=== PATIENT | male | born 1965 | race Caucasian/White ===

== ENCOUNTER 2021-10-15 08:07 | Emergency (ER) | payer OTHER, BC ==
[2021-10-15] MEDS ORDERED: Ibuprofen 600 MG Tab PO ONE (08:43)
[2021-10-15] MEDS ORDERED: Acetaminophen/oxyCODONE 325-5 MG Tab PO ONE (08:43)
--- NOTE | 2021-10-15 08:46 | EDM.PDOC ---
ED HPI GENERAL MEDICAL PROBLEM - General Chief Complaint: General Stated Complaint: RIB PAIN Time Seen by Provider: 10/15/21 08:08 Source of Information: Reports: Patient History Limitations: Reports: No Limitations - History of Present Illness INITIAL COMMENTS - FREE TEXT/NARRATIVE: 56-year-old male presents for left anterolateral rib pain following a fall yesterday. 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 When trying to get down he fell and hit the left anterior part of his torso on the wheel well. He did land on his feet and denies hitting his head or LOC. Denies any other injuries. Notes pain in the left anterolateral rib area worse with palpation and deep breathing. Worse with bending forward. Worse when laying flat. No associated shortness of breath. No nausea or vomiting. L side Pain Score (Numeric/FACES): 5 - Related Data Allergies Allergy/AdvReac Type Severity Reaction Status Date / Time Penicillins Allergy Hives Verified 10/15/21 08:32 Home Meds: Home Meds Cholecalciferol (Vitamin D3) [Vitamin D] 5,000 unit PO DAILY 10/15/21 [History] Doxazosin [Cardura] 2 mg PO DAILY 10/15/21 [History] Meloxicam 15 mg PO TID 10/15/21 [History] Propranolol [Inderal LA] 80 mg PO DAILY 10/15/21 [History] Past Medical History HEENT History: Reports: None Cardiovascular History: Reports: None Respiratory History: Reports: None Gastrointestinal History: Reports: None Genitourinary History: Reports: Other (See Below) Other Genitourinary History: enlarged prostate Musculoskeletal History: Reports: Arthritis, Fracture Neurological History: Reports: None Psychiatric History: Reports: None Endocrine/Metabolic History: Reports: None Hematologic History: Reports: None Immunologic History: Reports: None Oncologic (Cancer) History: Reports: None Dermatologic History: Reports: None - Infectious Disease History Infectious Disease History: Reports: Chicken Pox, Measles - Past Surgical History Head Surgeries/Procedures: Reports: None Male Surgical History: Reports: None Musculoskeletal Surgical History: Reports: Other (See Below) Other Musculoskeletal Surgeries/Procedures:: jaw sx after fx Social & Family History - Family History Family Medical History: No Pertinent Family History - Tobacco Use Tobacco Use Status *Q: Current Every Day Tobacco User Years of Tobacco use: 40 Packs/Tins Daily: 0.5 - Caffeine Use Caffeine Use: Reports: Coffee, Soda - Recreational Drug Use Recreational Drug Use: No ED ROS GENERAL - Review of Systems Review Of Systems: Comprehensive ROS is negative, except as noted in HPI. ED EXAM, GENERAL - Physical Exam Exam: See Below Exam Limited By: No Limitations General Appearance: Alert, WD/WN, No Apparent Distress Ears: Hearing Grossly Normal Throat/Mouth: Normal Voice, No Airway Compromise Head: Atraumatic, Normocephalic Neck: Normal Inspection, Supple, Non-Tender Respiratory/Chest: No Respiratory Distress, Lungs Clear, Normal Breath Sounds, No Accessory Muscle Use, Other (TTP of left anterolateral ribs without palpable deformity or ecchymosis of skin noted) Cardiovascular: Normal Peripheral Pulses, Regular Rate, Rhythm GI/Abdominal: Soft, Non-Tender Back Exam: Normal Inspection Extremities: Normal Inspection Neurological: Alert, Normal Cognition, Normal Gait Psychiatric: Normal Affect, Normal Mood Skin Exam: Warm, Dry, Intact, Normal Color Course - Vital Signs Last Recorded V/S: Last Vital Signs Temp 96.6 F L 10/15/21 08:34 Pulse 53 L 10/15/21 09:57 Resp 16 10/15/21 09:57 BP 93/61 10/15/21 09:57 Pulse Ox 98 10/15/21 09:57 - Orders/Labs/Meds Orders: Active Orders 24 hr Category Date Time Status Chest wo Cont [CT] Stat Exams 10/15/21 08:43 Taken Meds: Medications Discontinued Medications Generic Name Dose Route Start Last Admin Trade Name Amariq PRN Reason Stop Dose Admin Ibuprofen 600 mg 10/15/21 08:43 10/15/21 08:49 Ibuprofen 600 Mg Tab PO 10/15/21 08:44 600 mg ONETIME ONE Administration Oxycodone/Acetaminophen 1 tab 10/15/21 08:43 10/15/21 08:49 Acetaminophen/Oxycodone 325-5 Mg Tab PO 10/15/21 08:44 1 tab ONETIME ONE Administration - Re-Assessments/Exams Free Text/Narrative Re-Assessment/Exam: 10/15/21 08:45 We will give Motrin and Percocet for pain. Will get CT imaging of the chest to ensure no rib fractures or tiny pneumothorax. 10/15/21 10:[address] imaging shows an anterior lateral left 7th rib fracture with no pneumothorax. Will discharge with pain medication. Patient formed about the risks of pneumonia. Departure - Departure Time of Disposition: 10:06 Disposition: Home, Self-Care 01 Condition: Good Clinical Impression: Rib fracture Qualifiers: Encounter type: initial encounter Rib fracture type: single rib Fracture type: closed Laterality: left Qualified Code(s): S22.32XA - Fracture of one rib, left side, initial encounter for closed fracture - Discharge Information Instructions: Rib Fracture Referrals: Sara Godfrey DO [Primary Care Provider] - Forms: ED Department Discharge Additional Instructions: Your CT scan shows a fracture of your left 7th rib. There is no pneumothorax, which means no collapsed lung. This will likely take several weeks to completely heal. I did send you pain medication to [facility]. We can only send 3 days worth of pain medication from the emergency department, however, you would likely have pain for multiple weeks. Typically people describe rib pain for about 6 weeks after a rib fracture. You may need to follow-up with your primary care physician for more pain medicine if your pain is not adequately treated with [id number] pain medicine after you run out of your prescription medication. Please try to take deep breaths throughout the day as you are at risk of pneumonia with a rib fracture. People tend to take shallow breaths so the air does not get all the way to the bottom of the lungs and the bottom of the lungs can develop pneumonia. This is seen more in elderly patients, however, this can also happen to young people. The following information is given to patients seen in the emergency department who are being discharged to home. This information is to outline your options for follow-up care. We provide all patients seen in our emergency department with a follow-up referral. The need for follow-up, as well as the timing and circumstances, are variable depending upon the specifics of your emergency department visit. If you don't have a primary care physician on staff, we will provide you with a referral. We always advise you to contact your personal physician following an emergency department visit to inform them of the circumstance of the visit and for follow-up with them and/or the need for any referrals to a consulting specialist. The emergency department will also refer you to a specialist when appropriate. This referral assures that you have the opportunity for follow-up care with a specialist. All of these measure are taken in an effort to provide you with optimal care, which includes your follow-up. Under all circumstances we always encourage you to contact your private physician who remains a resource for coordinating your care. When calling for follow-up care, please make the office aware that this follow-up is from your recent emergency room visit. If for any reason you are refused follow-up, please contact the [facility] Emergency Department at and asked to speak to the emergency department charge nurse. Please follow up with your primary care physician. If you do not have a primary care physician, see below: [facility] [address] [place] [id number] My [facility] [address] [place] [address] [facility] [address], [place] [address] Sepsis Event Note (ED) - Evaluation Sepsis Screening Result: No Definite Risk - Focused Exam Vital Signs: Vital Signs Temp Pulse Resp BP Pulse Ox 10/15/21 09:57 53 L 16 93/61 98 10/15/21 08:34 96.6 F L 54 L 16 101/64 97 - My Orders Last 24 Hours: My Active Orders 10/15/21 08:43 Chest wo Cont [CT] Stat - Assessment/Plan Last 24 Hours: My Active Orders 10/15/21 08:43 Chest wo Cont [CT] Stat
--- NOTE | 2021-10-17 10:56 | CT ---
Final Report: Indication: Left anterior/lateral rib pain following injury. Technique: Multiple contiguous axial images were obtained from the thoracic inlet through the upper abdomen without intravenous contrast enhancement. Please note that all CT scans at this facility use dose modulation, iterative reconstruction, and/or weight-based dosing when appropriate to reduce radiation dose to as low as reasonably achievable. Comparison: None Findings: In the right upper lobe, a ground-glass opacity is identified measuring 18 mm in size. This is best seen on image number 25, series 202. In the posterior inferior aspect of the right upper lobe, a 3 mm noncalcified pulmonary nodules identified, best seen on image number 55, series 201. Another ground-glass nodule is identified in the lateral aspect of the right upper lobe, best seen on image number 60, series 2. In the right middle lobe, an 8 millimeter pulmonary nodules identified best seen on image number 68, series 202. In the posterior aspect of the right lower lobe, a 12 mm pulmonary ground-glass nodules identified best seen on image number 68, series 202. No infiltrate, pleural effusion, or pneumothorax is identified. The aorta is normal in caliber. No mediastinal or axillary lymphadenopathy is identified. The heart is normal in size. No pericardial effusion is identified. Fractures of the anterior lateral left 7th rib is identified. No pneumothorax is identified. The visualized portions of the unenhanced liver, spleen, pancreas, adrenals, and kidneys are normal. Degenerative changes of the spine are identified. No lytic or blastic lesions are identified. Impression: Anterior lateral left 7th rib fracture on the left. No pneumothorax. Pulmonary nodules identified on the right. Follow-up should be performed according to the Fleischner society criteria Please note that all CT scans at this facility use dose modulation, iterative reconstruction, and/or weight-based dosing when appropriate to reduce radiation dose to as low as reasonably achievable. Dictated by Cheryle Liao MD @ 10/15/2021 9:53:28 AM Signed by: Cheryle Liao MD @10/15/2021 9:53:28 AM (Electronic Signature) [email or web address]
== END 2021-10-15 10:22 | disposition home or self-care (01) ==
LOC: MW.ED 08:07
DX: S22.32XA Fracture of one rib, left side, initial encounter for closed fracture (principal); Z72.0 Tobacco use; Z88.0 Allergy status to penicillin; W17.89XA Other fall from one level to another, initial encounter; Y92.89 Other specified places as the place of occurrence of the external cause; Y99.0 Civilian activity done for income or pay
CPT/HCPCS: 71250; 99283; A9270

== ENCOUNTER 2024-08-02 11:14 | Emergency (ER) | payer BC, OTHER ==
[2024-08-02] MEDS: Lidocaine 2% Viscous Solution 15 ML UD PO ONE (11:45)
[2024-08-02] MEDS: Benzocaine 20% Topical Spray UD MUCMEM ONE (11:45)
== END 2024-08-02 11:59 | disposition home or self-care (01) ==
LOC: MW.ED 11:14
DX: K04.7 Periapical abscess without sinus (principal); Z75.8 Other problems related to medical facilities and other health care; Z88.0 Allergy status to penicillin; Z79.899 Other long term (current) drug therapy
CPT/HCPCS: 99282; A9270; 99283

== ENCOUNTER 2024-09-12 07:06 | Day surgery (SDC) | payer BC ==
[2024-09-12] MEDS ORDERED: propofoL 50 ML ONE (07:58)
[2024-09-12] MEDS: Lactated Ringers 1,000 ML IV SCH (08:06)
== END 2024-09-12 10:30 | disposition home or self-care (01) ==
LOC: MW.SDS 07:06
PROVIDERS: ATTEND Surgery
DX: K51.40 Inflammatory polyps of colon without complications (principal); K57.30 Diverticulosis of large intestine without perforation or abscess without bleeding; I10 Essential (primary) hypertension; E66.9 Obesity, unspecified; F17.290 Nicotine dependence, other tobacco product, uncomplicated; Z88.0 Allergy status to penicillin; Z79.899 Other long term (current) drug therapy; Z87.891 Personal history of nicotine dependence; Z68.31 Body mass index [BMI] 31.0-31.9, adult
CPT/HCPCS: 45380; 45385; J2704; J7120; 00811